=== PATIENT | female | born 1975 | race Two or more races ===

== ENCOUNTER 2018-11-26 10:17 | Emergency (ER) | payer MEDICAID, OTHER ==
[~2018-11-26] VITALS: Ht 167.6 cm; Wt 79.4 kg
[2018-11-26 10:50] VITALS: BP 130/66
== END 2018-11-26 11:42 | disposition home or self-care (01) ==
LOC: ER 10:17
DX: S60.111A Contusion of right thumb with damage to nail, initial encounter (principal); W22.8XXA Striking against or struck by other objects, initial encounter; Y93.89 Activity, other specified; Y99.8 Other external cause status; Y92.810 Car as the place of occurrence of the external cause
CPT/HCPCS: 11740; 73140